=== PATIENT | male | born 1980 | race Caucasian/White ===

== ENCOUNTER 2017-05-02 14:40 | Outpatient (CLI) | payer OTHER ==
--- NOTE | 2017-05-02 15:28 | Diagnostic Imaging Report ---
CT scan abdomen and pelvis without intravenous contrast HISTORY: Pain Total DLP equals 1007 CTDI equals 20.0 Axial sections were obtained from the xiphoid process down to the pubic symphysis. The liver exhibits a bulbous contour. There is a decrease in overall hepatic parenchymal density consistent with changes of fatty infiltration. The findings should be correlated with liver function tests. Spleen is somewhat generous in size. No focal abnormality seen in the region of the pancreas. No focal renal lesions. No abnormality seen in the region of the appendix. The exam of the pelvis demonstrates preservation of normal fat planes. No abnormal soft tissue masses or abnormal fluid collections IMPRESSION: 1. No definite acute abnormalities 2. Bulbous hepatic contour with suggestion of slight splenomegaly. Significance should be correlated clinically. 3. Findings suggesting hepatic fatty infiltration. The changes should be correlated with liver function tests.
== END 2017-05-02 15:15 ==
LOC: RAD 14:40
PROVIDERS: ATTEND Emergency Medicine
DX: R10.9 Unspecified abdominal pain (principal)